=== PATIENT | male | born 1995 | race Caucasian/White ===

== ENCOUNTER 2017-03-27 13:55 | Emergency (ER) | payer OTHER ==
[~2017-03-27] VITALS: Ht 177.8 cm; Wt 78.6 kg
[2017-03-27 14:03] VITALS: TEMP 36.3; Ht 177.8 cm; Wt 78.6 kg
[2017-03-27] MEDS ORDERED: AMPH10TA2 PO (14:14)
[2017-03-27] MEDS ORDERED: DiphenhydrAMINE HCL 50 MG/ML VIAL IV STA (14:34)
[2017-03-27] MEDS ORDERED: METOCLOPRAMIDE HCL INJ 5 MG/ML 2 ML VIAL IV STA (14:34)
[2017-03-27] MEDS ORDERED: SODIUM CHLORIDE 0.9% 1000ML 1,000 ML IV STA (14:34)
[2017-03-27] MEDS ORDERED: ACETAMINOPHEN 500 MG TAB PO STA (14:34)
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
[2017-03-27 15:01] LABS: BASO % 0.2 %; BASO ABS # 0.02 K/uL (0-0.2); COMPLETE YES; EOS % 0.1 %; HEMATOCRIT 45.1 % (42-52); IG% 0.3 %; LYMPH ABS # 0.77 K/uL (1.2-3.4); MEAN CELL VOLUME 88.4 fL (80-100); MEAN CORPUSCULAR HEMOGLOBIN 29.4 pg (25-34); MEAN CORPUSCULAR HGB CONC 33.3 g/dl (32-36); MEAN PLATELET VOLUME 9.6 fL (7.4-10.4); MONO % 2.8 %; NEUT % 89.6 %; PLATELET COUNT 273 K/uL (130-400); WHITE BLOOD COUNT 10.98 K/uL (4.8-10.8)
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
[2017-03-27 15:18] LABS: BUN/CREATININE RATIO 16.3 (10-20); CALCIUM 9.7 mg/dl (8.5-10.1); CREATININE 1.2 mg/dl (0.60-1.40); POTASSIUM 4.5 mmol/L (3.5-5.1)
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
[2017-03-27] MEDS ORDERED: ONDA4TAB10 SL (15:39)
[2017-03-27] MEDS ORDERED: ONDANSETRON HOME PACK 4MG OD TAB PO ONE (15:45)
[2017-03-27 15:46] VITALS: BP 143/63; PULSE 71; O2SAT 100
== END 2017-03-27 15:49 | disposition home or self-care (01) ==
LOC: C.EDB 14:02 → C.EDD 15:49
DX: T76.11XA Adult physical abuse, suspected, initial encounter (principal); G44.319 Acute post-traumatic headache, not intractable; S00.83XA Contusion of other part of head, initial encounter; W50.0XXA Accidental hit or strike by another person, initial encounter